=== PATIENT | female | born 1955 | race Caucasian/White ===

== ENCOUNTER 2022-09-17 22:40 | Emergency (ER) | payer MEDICARE ==
[2022-09-17] MEDS ORDERED: Cyclobenzaprine 10 MG TAB ONE (23:18)
[2022-09-17] MEDS ORDERED: AMOXicillin 250 MG CAP ONE (23:18)
[2022-09-17] MEDS ORDERED: HYDROcodone/Acetaminophen 5/325 mg Tablet ONE (23:18)
[2022-09-17] MEDS ORDERED: Acetaminophen 500 MG TAB ONE (23:32)
[2022-09-18] MEDS ORDERED: Ketorolac Tromethamine 30 MG/ML VIAL ONE
[2022-09-18] MEDS ORDERED: Ondansetron ODT 4 MG TAB ONE (00:01)
== END 2022-09-18 00:30 | disposition home or self-care (01) ==
LOC: MADERS 22:40
DX: S16.1XXA Strain of muscle, fascia and tendon at neck level, initial encounter (principal); J02.9 Acute pharyngitis, unspecified; J44.9 Chronic obstructive pulmonary disease, unspecified; F17.220 Nicotine dependence, chewing tobacco, uncomplicated; X58.XXXA Exposure to other specified factors, initial encounter
CPT/HCPCS: 72125; 93005; 96372; J1885; Q0162

== ENCOUNTER 2022-10-19 13:10 | Emergency (ER) | payer MEDICARE ==
[2022-10-19 13:50] LABS: Specific Gravity, Urine 1.023 (1.002-1.036)
[2022-10-19 13:51] LABS: Leukocyte Unable to Interpret (Negative); Nitrite Unable to Interpret (Negative)
[2022-10-19 13:52] LABS: Glucose, Urine (Dipstick) Unable to Interpret mg/dL (Negative); Ketone, Urine Unable to Interpret mg/dL (Negative); Protein, Urine (Dipstick) Unable to Interpret mg/dL (Neg-Trace)
[2022-10-19 13:53] LABS: Bilirubin Unable to Interpret (Negative); Blood, Urine Trace (Negative); Urobilinogen UNABLE TO INTERPRET mg/dL (Less than 2)
[2022-10-19 13:54] LABS: Clarity Clear (Clear)
[2022-10-19 14:02] LABS: Bacteria/HPF 1+ HPF (None Seen); CAUTI Indications for Culture Dysuria,urgency,freq
[2022-10-19 14:03] LABS: Urine Culture Reflex No No
[2022-10-19] MEDS ORDERED: Ondansetron PF 4 MG/2 ML Vial ONE (14:58)
[2022-10-19] MEDS ORDERED: Ketorolac Tromethamine 30 MG/ML VIAL ONE (14:58)
[2022-10-19 15:04] LABS: #Basophils 0.1 thou/uL (0.0-0.2); #Eosinphils 0.1 thou/uL (0.0-0.7); #Lymphocytes 2.1 thou/uL (1.20-3.40); #Monocytes 0.4 thou/uL (0.11-0.59); #Neutrophils 4.9 thou/uL (1.40-6.50); %Basophils 1.2 % (0.0-1.0); %Eosinophils 0.9 % (0.0-10.0); %Monocytes 4.8 % (0.0-10.0); %Neutrophils 65.1 % (42.0-75.0); Hemoglobin 14.7 g/dL (12.0-16.0); Mean Corpuscular HGB CONC 32.6 g/dL (32.0-36.0); Mean Corpuscular Hemoglobin 31.1 pg (27.0-31.0); Mean Corpuscular Volume 95.3 fl (78.0-98.0); Mean Platelet Volume 10.1 fL (7.4-10.4); Platelet Count 275 10x3/uL (130-400); RBC Distribution Width 12.8 % (11.5-14.5); Red Blood Cell (RBC) Count 4.72 mill/uL (4.20-5.40); White Blood Cell (WBC) Count 7.5 10x3/uL (4.8-10.8)
[2022-10-19 15:20] LABS: ALT (SGPT) 14 U/L (8-55); AST (SGOT) 18 U/L (5-34); Albumin 4.1 g/dL (3.4-4.8); Alkaline Phosphatase 71 U/L (40-110); Anion Gap 15 mmol/L (10-20); BUN (Urea Nitrogen) 15 mg/dL (9.8-20.1); Bilirubin, Total 0.4 mg/dL (0.2-1.2); Calc. Creatinine Clearance 0 mL/min (70-130); Calcium 9.4 mg/dL (7.8-10.44); Carbon Dioxide 25 mmol/L (23-31); Chloride 107 mmol/L (98-107); Estimated GFR 88; Globulin 2.4 g/dL (2.4-3.5); Glucose 92 mg/dL (80-115); Potassium 4.2 mmol/L (3.5-5.1); Protein, Total 6.5 g/dL (5.8-8.1); Sodium 143 mmol/L (136-145)
== END 2022-10-19 15:45 | disposition home or self-care (01) ==
LOC: MADERS 13:10
DX: N39.0 Urinary tract infection, site not specified (principal); F17.200 Nicotine dependence, unspecified, uncomplicated; J44.9 Chronic obstructive pulmonary disease, unspecified
CPT/HCPCS: 74176; 80053; 81001; 85025; 86140; 96374; 96375; J1885; J2405

== ENCOUNTER 2023-09-10 19:14 | Emergency (ER) | payer MEDICARE ==
[2023-09-10] MEDS ORDERED: Ondansetron PF 4 MG/2 ML Vial ONE (19:57)
[2023-09-10] MEDS ORDERED: Sodium Chloride 0.9% 1,000 ML ONE (19:57)
[2023-09-10 20:18] LABS: Bilirubin Negative (Negative); Blood, Urine Negative (Negative); CAUTI Indications for Culture Alt mental st,lethar; Clarity Clear (Clear); Glucose, Urine (Dipstick) Negative (Negative); Ketone, Urine Negative (Negative); Leukocyte Trace (Negative); Nitrite Negative (Negative); Protein, Urine (Dipstick) Negative (Neg-Trace); RBC/HPF 0-3 HPF (0-3); Specific Gravity, Urine 1.025 (1.005-1.030); Squamous Epithelial 0-3 HPF (0-3); Urobilinogen 0.2 mg/dL (Less than 2); pH, Urine 6.5 (5.0-9.0)
[2023-09-10 20:19] LABS: Urine Culture Reflex No No
[2023-09-10 20:19] LABS: Hematocrit 51.3 % (36.0-47.0); Hemoglobin 15.6 g/dL (12.0-16.0); Mean Corpuscular HGB CONC 30.5 g/dL (32.0-36.0); Mean Corpuscular Hemoglobin 29.6 pg (27.0-31.0); Mean Corpuscular Volume 97.2 fl (78.0-98.0); Mean Platelet Volume 7.6 fL (7.4-10.4); Platelet Count 273 10x3/uL (130-400); RBC Distribution Width 12.4 % (11.5-14.5); Red Blood Cell (RBC) Count 5.28 mill/uL (4.20-5.40); White Blood Cell (WBC) Count 7.4 10x3/uL (4.8-10.8)
[2023-09-10 20:20] LABS: #Basophils 0.1 thou/uL (0.0-0.2); #Eosinphils 0.1 thou/uL (0.0-0.7); #Lymphocytes 2.4 thou/uL (1.20-3.40); #Monocytes 0.4 thou/uL (0.11-0.59); #Neutrophils 4.5 thou/uL (1.40-6.50); %Basophils 1.1 % (0.0-1.0); %Eosinophils 1.6 % (0.0-10.0); %Lymphocytes 32.3 % (21.0-51.0); %Monocytes 5.1 % (0.0-10.0); %Neutrophils 59.9 % (42.0-75.0)
[2023-09-10 20:36] LABS: ALT (SGPT) 10 U/L (8-55); AST (SGOT) 17 U/L (5-34); Albumin 4.4 g/dL (3.4-4.8); Alkaline Phosphatase 72 U/L (40-110); Anion Gap 16 mmol/L (10-20); BUN (Urea Nitrogen) 15 mg/dL (9.8-20.1); Bilirubin, Total 0.3 mg/dL (0.2-1.2); Calc. Creatinine Clearance 0 mL/min (70-130); Calcium 9.4 mg/dL (7.8-10.44); Carbon Dioxide 23 mmol/L (23-31); Chloride 110 mmol/L (98-107); Estimated GFR 84; Globulin 2.1 g/dL (2.4-3.5); Glucose 102 mg/dL (80-115); Lipase 25 U/L (8-78); Magnesium 1.9 mg/dL (1.6-2.6); Potassium 4.2 mmol/L (3.5-5.1); Protein, Total 6.5 g/dL (5.8-8.1); Sodium 145 mmol/L (136-145)
[2023-09-10 20:37] LABS: Troponin I Less than 0.010 ng/mL (< 0.028)
[2023-09-10] MEDS ORDERED: Dicyclomine 20 MG/2 ML VIAL ONE (20:44)
[2023-09-10] MEDS ORDERED: diphenhydrAMINE 50 MG/ML VIAL ONE (21:38)
== END 2023-09-10 22:00 | disposition home or self-care (01) ==
LOC: MADERS 19:14
DX: J18.9 Pneumonia, unspecified organism (principal); R11.2 Nausea with vomiting, unspecified; R19.7 Diarrhea, unspecified; M79.7 Fibromyalgia; J44.9 Chronic obstructive pulmonary disease, unspecified; F17.200 Nicotine dependence, unspecified, uncomplicated; G62.9 Polyneuropathy, unspecified; G89.29 Other chronic pain; M54.9 Dorsalgia, unspecified; Z79.899 Other long term (current) drug therapy
CPT/HCPCS: 71045; 74176; 80053; 81001; 83690; 83735; 84484; 85025; 93005; 96361; 96372; 96374; 96375; 99285; J1200; J2405; J7050